=== PATIENT | female | born 1960 | race Caucasian/White ===

== ENCOUNTER 2019-10-05 10:05 | Day surgery (SDC) | payer BC ==
[2019-10-05] MEDS ORDERED: PROPOFOL 10 MG/ML VIAL IV ONE (10:06)
[2019-10-05] MEDS ORDERED: LIDOCAINE 2% MDV (20MG/ML) 20ML VIAL IV ONE (10:06)
--- NOTE | 2019-10-07 10:10 | Operative Note ---
OPERATION: COLONOSCOPY to the cecum with cold snare polypectomy. INDICATION: Colorectal cancer screening. The patient does report that her main complaint is abdominal bloating with gas. She otherwise has regular stools, she has not had a complete colonoscopy in the near past. ANESTHESIA: Intravenous sedation was administered by the department of anesthesiology and included Diprivan titrated to effect. PROCEDURE: Following informed consent from this alert individual including a discussion of the risks and benefits of the procedure and an opportunity for the patient to ask questions, the patient was in the left lateral decubitus position. A digital rectal examination was performed. No abnormalities were noted. Following this, the Olympus [id number] video colonoscope was inserted into the rectum without resistance. The rectal mucosa had a normal appearance with normal folds and distensibility. The colonoscope was advanced up through the colon to the level of the cecum without much difficulty. Throughout the bowel the mucosa appeared normal, the folds were normal, and the bowel was fairly well distensible. The cecum was defined by noting the appendiceal orifice and ileocecal valve. The colon preparation was good. From the base of the cecum, the colonoscope was slowly withdrawn. There was a 5 mm polyp noted in the sigmoid colon removed with cold snare polypectomy. No other changes were appreciated. Retroflexion in the rectum was endoscopically normal. The endoscope was straightened and removed. The patient tolerated the procedure well and was returned to the recovery area in stable condition. IMPRESSION: 1. A 5 mm sigmoid polyp removed with cold snare polypectomy. 2. Otherwise unremarkable colonoscopy to the cecum. RECOMMENDATIONS: Further recommendations will be forthcoming pending results of pathology obtained today. If the patient's gas and bloating persist, she might be a candidate for a bacterial overgrowth breath test. Followup will be with Dr. Borrego. As always, thank you for allowing me to participate in the care of your patient. PEDRO
== END 2019-10-05 12:05 | disposition home or self-care (01) ==
LOC: HOP 10:05
PROVIDERS: ATTEND Internal Medicine Gastroenterology
DX: Z12.11 Encounter for screening for malignant neoplasm of colon (principal); D12.5 Benign neoplasm of sigmoid colon; R14.0 Abdominal distension (gaseous)